=== PATIENT | female | born 1995 | race Caucasian/White ===

== ENCOUNTER 2024-01-01 07:21 | Emergency (ER) | payer BC, SELFPAY ==
--- NOTE | ~2024-01-01 | XR_ITS ---
EXAMINATION: XR ankle LT min 3V DATE: 01/01/2024 08:08 INDICATION: Left ankle pain and swelling. Injury. TECHNIQUE: 4 views of left ankle were obtained. COMPARISON: None. FINDINGS: Bone alignment is normal. No fracture. There is an osteochondral lesion of medial talar dom e. There is lateral ankle soft tissue swelling. IMPRESSION: 1. Osteochondral lesion of medial talar dome. Reviewed, dictated and finalized at location A.
[2024-01-01 07:42] VITALS: BP 134/94; PULSE 97; RESP 20; TEMP 36.4; O2SAT 100
--- NOTE | 2024-01-01 08:37 | ED.LOWEXIN ---
HPI - Extremity Injury (Lower) General Chief Complaint: Extremity Injury, Lower Stated Complaint: left ankle injury Time Seen by Provider: 01/01/24 07:41 History of Present Illness HPI Narrative: Patient is a 28-year-old female who presents ER with left ankle pain. Rolled her ankle going down steps yesterday. She still able to ambulate. She has swelling over the lateral malleolus. No numbness or tingling. No redness. She did not suffer any other injury. Related Data Allergies Allergy/AdvReac Type Severity Reaction Status Date / Time No Known Allergies Allergy Verified 01/01/24 07:43 Review of Systems Musculoskeletal: Musculoskeletal: Denies back pain, Reports arthralgias and Reports joint swelling Integumentary/Breasts: Skin/Breast: Reports system reviewed and no additional complaints, except as docu Neurologic: Reports system reviewed and no additional complaints, except as documented PMFSH Past Medical History Medical History (Updated 01/01/24 @ 08:41 by Anish Perez MD) Healthy female adult Exam Narrative: GENERAL: Well-appearing, well-nourished, and in no acute distress. HEAD: Normocephalic, atraumatic. EXTREMITIES: Swelling left lateral ankle but normal range of motion and no point tenderness. Neurovascular intact SKIN: Warm, dry, no rash. NEURO: Alert and oriented x3. PSYCH: Normal mood and affect. Course Course Emergency Course: Discussed with Dr. Fong, nothing to do about the osteochondral lesion, it is felt to be incidental. Patient will be given Carlos wrap and NSAIDs. Vital Signs Vital signs: Vital Signs Temperature 97.5 F L 01/01/24 07:42 Pulse Rate 97 01/01/24 07:42 Respiratory Rate 20 01/01/24 07:42 Blood Pressure 134/94 H 01/01/24 07:42 Pulse Oximetry 100 01/01/24 07:42 Temperature 97.5 F L 01/01/24 07:42 Pulse Rate 97 01/01/24 07:42 Respiratory Rate 20 01/01/24 07:42 Blood Pressure 134/94 H 01/01/24 07:42 Pulse Oximetry 100 01/01/24 07:42 MDM - Extremity Injury (Lower) Imaging Data Radiologist's impression: ITS Impressions Ankle X-Ray 01/01/24 08:09 IMPRESSION: 1. Osteochondral lesion of medial talar dome. Discharge Plan Discharge Clinical Impression: Ankle sprain Patient Disposition: Home, Self-Care Condition: Stable Instructions: Ankle Sprain (ED), P.R.I.C.E. Treatment (ED) Additional Instructions: Return ER if he suffered distal injury, your foot is cold and blue, you have additional concerns. Prescriptions: New naproxen 375 mg tablet 375 mg PO BID Qty: 14 0RF Follow-up/Referrals: Tavo Li MD [Physician] - 1 Week PHYSICIAN,[employer]AMS MANAGER [Primary Care Provider] - Stand Alone Forms: Work/School Release IP
[2024-01-01 08:47] VITALS: BP 124/79; PULSE 88; RESP 100; TEMP 36.4; O2SAT 99
== END 2024-01-01 08:48 | disposition home or self-care (01) ==
PROVIDERS: Emergency Provider Emergency Medicine
DX: S93.402A Sprain of unspecified ligament of left ankle, initial encounter (principal); X50.9XXA Other and unspecified overexertion or strenuous movements or postures, initial encounter
CPT/HCPCS: 73610; 99283